=== PATIENT | female | born 1960 | race Caucasian/White ===

== ENCOUNTER 2017-02-26 12:16 | Emergency (ER) | payer OTHER ==
[~2017-02-26] VITALS: Ht 157.5 cm; Wt 86.2 kg
[~2017-02-26 12:16] MED LIST: ACID CONTROL150 MG PO; ACTONEL PO; AMBIEN PO; DEPAKOTE PO; DIAZEPAM PO; OMEPRAZOLE40 M1 PO; PHENERGAN25 M1 PO; REGLAN5 MG PO; [UNRECOGNIZED DRUG - OTHER]
== END 2017-02-26 13:09 | disposition home or self-care (01) ==
LOC: CED 12:16 → CFTX 12:16
DX: M62.830 Muscle spasm of back (principal); M62.838 Other muscle spasm; Z90.49 Acquired absence of other specified parts of digestive tract
CPT/HCPCS: 99283